=== PATIENT | male | born 1995 | race Caucasian/White ===

== ENCOUNTER 2024-05-28 02:06 | Emergency (ER) | payer SELFPAY ==
[2024-05-28 02:09] VITALS: BP 147/84
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
[2024-05-28 05:16] VITALS: BP 130/81
== END 2024-05-28 05:17 | disposition home or self-care (01) ==
LOC: EMR 02:06
PROVIDERS: EMERGENCY PHYSICIAN Emergency Medicine; FAMILY PHYSICIAN Nurse Practitioner Family
DX: S89.91XA Unspecified injury of right lower leg, initial encounter (principal); W50.0XXA Accidental hit or strike by another person, initial encounter; Y92.149 Unspecified place in prison as the place of occurrence of the external cause; Y99.0 Civilian activity done for income or pay
CPT/HCPCS: 99284; 29505; 73564